=== PATIENT | male | born 1965 | race Caucasian/White ===

== ENCOUNTER 2022-01-19 04:35 | Inpatient (IN) | payer MEDICARE, MEDICAID ==
[2022-01-19] MEDS ORDERED: Aspirin 81 MG Tab.Chew ONE (04:47)
[2022-01-19] MEDS ORDERED: Sodium Chloride 0.9% 10 ML Syringe FLUSH PRN (05:03)
[2022-01-19] MEDS ORDERED: Sodium Chloride 0.9% 1,000 ML IV ONE (05:03)
[2022-01-19] MEDS ORDERED: Acetaminophen 500 MG Tab PO ONE (05:03)
[2022-01-19] MEDS ORDERED: Albuterol/Ipratropium 3.0-0.5 MG/3 ML Neb Soln ONE (05:05)
[2022-01-19] MEDS ORDERED: Acetaminophen 500 MG Tab ONE (05:05)
[2022-01-19] MEDS: Albuterol/Ipratropium 3.0-0.5 MG/3 ML Neb Soln NEB ONE ×2 (05:12→05:13)
[2022-01-19] MEDS ORDERED: cefTRIAXone 1 GM Vial IVPUSH ONE (05:24)
[2022-01-19 05:32] LABS: ANION GAP 11.5 mmol/L (5-15); CHLORIDE,CL 95 mmol/L (98-107); SODIUM,NA 132 mmol/L (136-145)
[2022-01-19] MEDS ORDERED: Water For Injection, Sterile 20 ML ONE (06:05)
[2022-01-19] MEDS: Azithromycin 250 MG Tab PO SCH (10:05)
[2022-01-19] MEDS ORDERED: ALPRAZolam 0.25 MG Tab PO PRN (11:36)
[2022-01-19] MEDS ORDERED: Albuterol 0.083% 2.5 MG/3 ML Neb Soln NEB PRN (12:09)
[2022-01-19] MEDS: Acetaminophen 500 MG Tab PO PRN ×2 (12:26→20:17)
[2022-01-19] MEDS: Nicotine 21 MG/24 Hr Patch TRDERM SCH (12:26)
[2022-01-19] MEDS: Albuterol/Ipratropium 3.0-0.5 MG/3 ML Neb Soln NEB PRN ×2 (14:11→20:18)
[2022-01-19] MEDS ORDERED: Melatonin 3 MG Tab PO PRN (20:46)
[2022-01-20] MEDS: Acetaminophen 500 MG Tab PO PRN (05:40)
[2022-01-20] MEDS ORDERED: cefTRIAXone 1 GM Vial IVPUSH SCH (06:00)
[2022-01-20] MEDS: Albuterol/Ipratropium 3.0-0.5 MG/3 ML Neb Soln NEB PRN (06:10)
[2022-01-20] MEDS: Azithromycin 250 MG Tab PO SCH (08:07)
[2022-01-20 08:38] LABS: ANION GAP 14.8 mmol/L (5-15); CHLORIDE,CL 95 mmol/L (98-107); SODIUM,NA 133 mmol/L (136-145)
[2022-01-20] MEDS: Nicotine 21 MG/24 Hr Patch TRDERM SCH (09:08)
[2022-01-20] MEDS ORDERED: NICOTINE - Remove Patch TRDERM SCH (12:00)
== END 2022-01-20 10:50 | disposition home or self-care (01) | DRG 193 ==
LOC: KA.ED 04:35 → KA.MS 05:55 → KA.ED 06:20
PROVIDERS: ADMIT Physician Assistant Medical; ATTEND Nurse Practitioner Family
DX: J18.9 Pneumonia, unspecified organism (principal); R09.02 Hypoxemia; F17.200 Nicotine dependence, unspecified, uncomplicated; J96.01 Acute respiratory failure with hypoxia; J44.1 Chronic obstructive pulmonary disease with (acute) exacerbation; J44.0 Chronic obstructive pulmonary disease with (acute) lower respiratory infection; F41.9 Anxiety disorder, unspecified; F17.210 Nicotine dependence, cigarettes, uncomplicated; R91.1 Solitary pulmonary nodule; Z79.899 Other long term (current) drug therapy; H54.7 Unspecified visual loss; Z20.822 Contact with and (suspected) exposure to COVID-19; Z98.890 Other specified postprocedural states
CPT/HCPCS: 36415; 71046; 80053; 81001; 83605; 84484; 85025; 93005; 93010; 94640; 96374; 99284; 99285-25; A9270-GY; J0696; J7030; J7620-GY; U0002